=== PATIENT | male | born 1960 | race African-American/Black ===

== ENCOUNTER 2016-09-27 07:57 | Day surgery (SDC) | payer BC ==
[~2016-09-27 07:57] MED LIST: Buffered Lidocaine 0.9% SYRIN* 5 ML/SYR SYRINGE INTRADERM ONE; Ibuprofen TAB* 400 MG PO ONE; Sodium Citrate/Citric Acid* 15 ML UDC PO ONE
[2016-09-27] MEDS ORDERED: Sodium Citrate/Citric Acid* 15 ML UDC ONE (08:00)
[2016-09-27] MEDS ORDERED: Ibuprofen TAB* 400 MG ONE (08:00)
[2016-09-27] MEDS ORDERED: ceFAZolin 2 GM PREMIX(*) 2 GM/50 ML BAG IVPB ONE (08:08)
[2016-09-27] MEDS ORDERED: Bupivacaine 0.25% SDV* 30 ML ONE (09:31)
[2016-09-27] MEDS ORDERED: fentaNYL* 50 MCG/ML 2 ML VIAL (100 MCG VIAL) ONE (09:36)
[2016-09-27] MEDS ORDERED: Midazolam* 1 MG/ML 5 ML VIAL (5 MG) ONE (09:36)
[2016-09-27] MEDS ORDERED: Lidocaine 0.5%* 50 ML SDV ONE (09:48)
[2016-09-27] MEDS ORDERED: HYDROcodone/ACETAMIN 5-325 MG* 1 TAB PO PRN (10:02)
[2016-09-27] MEDS ORDERED: fentaNYL* 50 MCG/ML 2 ML VIAL (100 MCG VIAL) IV PRN (10:02)
[2016-09-27 11:16] VITALS: BP 129/84
--- NOTE | 2016-09-28 03:31 | OP ---
DATE OF OPERATION: 09/27/16 - [facility] DATE OF : 62 SURGEON: Ruiz Castellano MD SUCTION WORKER: LEAH Jasso ANESTHESIOLOGIST: Dr. Roy. ANESTHESIA: [place] block with MAC. PRE-OP DIAGNOSIS: Symptomatic and impinging hardware, right fifth metacarpal. POST-OP DIAGNOSIS: Symptomatic and impinging hardware, right fifth metacarpal. PROCEDURE PERFORMED: Removal of Synthes modular handset 2.4 mm plate and screws from right fifth metacarpal bone. INDICATIONS: Nikita had a fifth metacarpal fracture fixed with plate and screws in 2011. Plate was placed very distally, and was impinging dorsally when he would extend the MP joint. It was quite prominent and symptomatic. We had talked about risks and benefits including the risk of stiffness or tendon adhesions and other problems and he elected to proceed with surgery. ESTIMATED BLOOD LOSS: 2 mL. COMPLICATIONS: None. FINDINGS: There was significant bony overgrowth over about 75% of the plate. DESCRIPTION OF PROCEDURE: Nikita was seen in the preoperative holding area. The correct side, site, and procedure were identified. We came back to the operating room where the arm was prepped and draped in the usual fashion. A formal time-out was performed. The Sd block was performed. I began by going back through his old incision, which was on the dorsal ulnar aspect of the fifth metacarpal. Dissection was carried down through the bed of scar tissue and the extensor tendons were identified and full thickness flaps were raised right off of the extensor tendon paratenon. The extensor calderon was exposed distally. I then split the interval between the EDM and the EDC tendons. This was carried distally as a split through the extensor calderon and then the soft tissue layer overlying the plate was raised sharply, proximally off of the plate and bony overgrowth and then distally the capsule was incised longitudinally. The capsule of the metacarpophalangeal joint was incised longitudinally. At this point, I had to take an osteotome and spend a fair amount of time carefully excising all of the bony overgrowth. Additionally, there was quite a bit of bony ingrowth into the Yates head of the screw, which took quite sometime to excise all of that ingrowth so that I can get the screwdriver into the screw. Ultimately, I was able to get all the bony overgrowth excised. The 4 screws were removed uneventfully. I then had to spend a fair amount of time with the osteotome removing the bony overgrowth around the sides of the plate so that I could get the plate off the bone. The plate ultimately came off and was handed off as a specimen. I then took the rongeur and trimmed back all the bony sharp edges until a nice, smooth bony surface. The wound was copiously irrigated. The periosteal layer was closed over the bone with 4-0 Prolene suture with the knots buried. The capsule was closed distally with buried 4-0 Prolene [id number] stitches. The extensor calderon was closed with multiple [id number] 4-0 Prolene sutures again with the knots buried. Everything looked good at this point. So, I irrigated out the wound. The skin was closed with 4-0 nylon suture. The operative area was infiltrated with 0.25% plain Marcaine. The wound was dressed with Xeroform, 4x4s, sterile Webril and an Joni bandage. Tourniquet was deflated. The hand pinked up immediately. He was then taken to the recovery room in stable condition. [id number]/[facility] #: [id number] SRAVAN
== END 2016-09-27 11:21 | disposition home or self-care (01) ==
LOC: OREAST 07:57
PROVIDERS: ATTEND Orthopaedic Surgery Hand Surgery
DX: T84.84XA Pain due to internal orthopedic prosthetic devices, implants and grafts, initial encounter (principal); M77.11 Lateral epicondylitis, right elbow; M20.011 Mallet finger of right finger(s); F17.210 Nicotine dependence, cigarettes, uncomplicated; Y79.2 Prosthetic and other implants, materials and accessory orthopedic devices associated with adverse incidents; Z79.82 Long term (current) use of aspirin; Z88.8 Allergy status to other drugs, medicaments and biological substances; I10 Essential (primary) hypertension; K21.9 Gastro-esophageal reflux disease without esophagitis; M19.90 Unspecified osteoarthritis, unspecified site
CPT/HCPCS: 88300; A9270-GY; J0690; J2250; J3010

== ENCOUNTER 2023-08-26 12:36 | Observation (INO) ==
[2023-08-26 13:21] LABS: ABS Eosinophils 0.1 10^3/uL (0.0-0.5); ABS Lymphocytes 1.1 10^3/uL (1.0-4.8); ABS Monocytes 0.5 10^3/uL (0.0-1.1); ABS Neutrophils 2.8 10^3/uL (1.5-7.6); ABS Nucleated RBC 0.01 10^3/ul; Eosinophil % 1.3 %; Hematocrit 41.2 % (38-53); Hemoglobin 13.7 g/dL (13.2-16.3); Lymphocyte % 24.3 %; Mean Corpuscular Hemoglobin 30.4 pg (27-33); Mean Corpuscular Hgb Conc 33.3 g/dL (31-36); Mean Corpuscular Volume 91.3 fL (80-97); Mean Platelet Volume 9.4 fL (7.5-11.2); Nucleated Red Blood Cells % 0.1 %/100WBC (0.0-0.8); Platelet Count 154 10^3/uL (150-450); Red Blood Count 4.51 10^6/uL (4.06-5.63); Red Cell Distribution Width 14.1 % (12-17); White Blood Count 4.6 10^3/uL (3.6-10.2)
[2023-08-26] MEDS: Iodixanol (CONTRAST) 320 MG/ML 100 ML SDV IV ONE (13:23)
[2023-08-26 13:38] LABS: Activated Partial Thrombo Time 35.5 seconds (26.0-38.0); INR 0.89 (0.83-1.13)
[2023-08-26 13:57] LABS: Albumin 4.6 g/dL (3.2-5.2); Albumin/Globulin Ratio 1.8 (1-3); Calcium 9.1 mg/dL (8.6-10.3); Creatinine, Serum 0.83 mg/dL (0.67-1.17); Direct Bilirubin 0.1 mg/dL (0.03-0.18); Globulin 2.6 g/dL (2-4); HDL Cholesterol 80.2 mg/dL; Indirect Bilirubin 0.4 mg/dL (0.3-1.0); Potassium 4.1 mmol/L (3.5-5.0); Total Bilirubin 0.5 mg/dL (0.2-1.0); Total Protein 7.2 g/dL (6.4-8.9)
[2023-08-26 15:40] LABS: Urine Appearance Clear; Urine Bilirubin Negative (Negative); Urine Blood Negative (Negative); Urine Color Light-Yellow; Urine Glucose Negative (Negative); Urine Ketones Negative (Negative); Urine Nitrite Negative (Negative); Urine Protein Negative (Negative); Urine Specific Gravity 1.031 (1.002-1.030); Urine Urobilinogen Negative (Negative); Urine pH 6.5 (5.0-8.0)
[2023-08-26] MEDS: Enoxaparin 40 MG/0.4 ML SYR SUBCUT SCH (23:25)
[2023-08-26] MEDS: HYDROcodone/ACETAMIN 5/325 mg TAB PO PRN (23:39)
[2023-08-27] MEDS: CMCS: Brimonidine P 0.15%(NF) OPH SOL 5 ML BTL BOTH EYES SCH (00:02)
[2023-08-27] MEDS: NF: IPRATROPIUM BR (NF)0.03% NASAL 1 SPRAY BTL BOTH NARES SCH (00:04)
[2023-08-27] MEDS: Lidocaine PATCH 5% PATCH TRANSDERM SCH (00:59)
[2023-08-27] MEDS: Latanoprost 0.005% 2.5 ml BTL BOTH EYES SCH (01:03)
[2023-08-27] MEDS: Dorzolamide/Timolol OPTH (NF) 10 ML BOT BOTH EYES SCH (01:09)
[2023-08-27] MEDS: Sulfur Hexaflouride MICROSPHR 25 MG VIAL IV ONE ×2 (14:27)
[2023-08-27 14:30] VITALS: BP 149/94
== END 2023-08-27 17:00 | disposition home or self-care (01) ==
LOC: ED 12:36 → EDHOLD 12:36 → MEDTELE 17:07
PROVIDERS: ADMIT Student in an Organized Health Care Education/Training Program; ATTEND Student in an Organized Health Care Education/Training Program

== ENCOUNTER 2024-02-14 12:07 | Observation (INO) ==
[~2024-02-14 12:07] MED LIST changes: -Buffered Lidocaine 0.9% SYRIN* 5 ML/SYR SYRINGE INTRADERM ONE; -Ibuprofen TAB* 400 MG PO ONE; +Lidocaine 2% PF 5 ML VIAL ONE; +Metoclopramide 5 MG/ML VIAL (10 mg) IV PRN; +NS 0.45% 1000 ml BAG 1,000 ML IV SCH; +Naloxone 0.4 mg VIAL 0.4 mg/ml 1 ml VIAL IV PRN; +Ondansetron 4 mg VIAL 2 MG/ML 2 ml VIAL IV PRN; +Propofol 10 MG/ML 20 ML BTL ONE; -Sodium Citrate/Citric Acid* 15 ML UDC PO ONE; +fentaNYL 100 mcg/2 ml 50 MCG/ML VIAL ONE
[2024-02-14] MEDS ORDERED: ceFAZolin 2 GM PREMIX 2 GM/50 ML BAG ONE (12:42)
[2024-02-14] MEDS ORDERED: Tranexamic Acid 1 GM/100ML BAG 2,000 MG/200 ML BAG IV ONE (12:44)
[2024-02-14 13:07] LABS: Rapid COVID-19 Molecular Undetected (Undetected)
[2024-02-14] MEDS: Buffered Lidocaine 1% SYRIN 1 ml INTRADERM ONE (13:07)
[2024-02-14] MEDS: Scopolamine 1 mg/72hr PATCH TRANSDERM ONE (13:07)
[2024-02-14] MEDS ORDERED: Dexamethasone IV 4 MG/ML VIAL 1 ml VIAL ONE ×2 (13:12→16:49)
[2024-02-14] MEDS ORDERED: fentaNYL 100 mcg/2 ml 50 MCG/ML VIAL ONE ×3 (13:12→17:46)
[2024-02-14] MEDS ORDERED: Midazolam 2 mg/2 ml VIAL 1 mg/ml 2 ml VIAL (2 mg) ONE (13:12)
[2024-02-14] MEDS: Lactated Ringers 1000 ml BAG 1,000 ML IV SCH ×2 (13:22→19:10)
[2024-02-14] MEDS ORDERED: ROPIVACAINE 5 MG/ML 30 ML BTL (0.5%) ONE ×2 (13:38→15:02)
[2024-02-14] MEDS ORDERED: Glycopyrrolate IV 0.2 MG/ML 1 ML VIAL ONE (14:31)
[2024-02-14] MEDS ORDERED: HYDROmorphone 0.5 MG/0.5 ML SYRINGE ONE ×3 (15:22→15:51)
[2024-02-14] MEDS ORDERED: Lactulose 30 ml UDC PO PRN (16:04)
[2024-02-14] MEDS ORDERED: Magnesium Hydroxide LIQ 30 ML UDC PO PRN (16:04)
[2024-02-14] MEDS ORDERED: Ondansetron 4 mg VIAL 2 MG/ML 2 ml VIAL IV PRN (16:04)
[2024-02-14] MEDS ORDERED: Ondansetron ODT 4 mg TAB 4 MG TAB PO PRN (16:04)
[2024-02-14] MEDS ORDERED: Morphine 2 MG/ML SYRINGE IV PRN (16:04)
[2024-02-14] MEDS ORDERED: Calcium Carb (TUMS) 500 mg CHEW TAB PO PRN (16:04)
[2024-02-14] MEDS ORDERED: Ondansetron 4 mg VIAL 2 MG/ML 2 ml VIAL ONE (16:49)
[2024-02-14] MEDS ORDERED: ceFAZolin 2 GM PREMIX 2 GM/50 ML BAG IV SCH (17:00)
[2024-02-14] MEDS: fentaNYL 100 mcg/2 ml 50 MCG/ML VIAL IV PRN (17:49)
[2024-02-14] MEDS: Magnesium Hydroxide LIQ 30 ML UDC PO SCH (20:32)
[2024-02-14] MEDS: Brimonidine P 0.15%(NF) OPH SOL 5 ML BTL BOTH EYES SCH (22:07)
[2024-02-14] MEDS: Latanoprost 0.005% 2.5 ml BTL BOTH EYES SCH (22:07)
[2024-02-14] MEDS: ceFAZolin 2 GM in NS 100 MLS Q8H (Pharmacy Admix) IVPB SCH (22:09)
[2024-02-14] MEDS: Dorzolamide/Timolol OPTH (NF) 10 ML BOT BOTH EYES SCH (22:36)
[2024-02-15 06:19] LABS: Hemoglobin 11.5 g/dL (13.2-16.3); Mean Platelet Volume 9.3 fL (7.5-11.2); Platelet Count 171 10^3/uL (150-450)
[2024-02-15 06:21] VITALS: BP 138/90
[2024-02-15 06:37] LABS: Calcium 8.7 mg/dL (8.6-10.3); Creatinine, Serum 0.73 mg/dL (0.67-1.17); Potassium 4.4 mmol/L (3.5-5.0); eGFR CKD-EPI 102.2 (>60)
[2024-02-15] MEDS: Acetaminophen IV 1 GM/100ML 1,000 MG/100 ML BAG IV ONE (07:08)
[2024-02-15] MEDS: Cholecalciferol (VIT D3) 1,000 unit TAB PO SCH (07:52)
[2024-02-15] MEDS: Vitamin THERAPEUTIC TAB PO SCH (07:52)
[2024-02-15] MEDS: Calcium Citrate 200 mg TAB PO SCH (07:52)
[2024-02-15] MEDS: NF: Azelastine 0.15% NASAL(NF) 30 ML BTL BOTH NARES SCH (07:53)
[2024-02-15] MEDS: Coenzyme Q10 CAP (NF) ** ENTER STREGNTH IN LABEL DIRECTIONS PO SCH (07:53)
== END 2024-02-15 11:05 | disposition home or self-care (01) ==
LOC: SSU 12:07 → OR 12:07
PROVIDERS: ADMIT Orthopaedic Surgery Adult Reconstructive Orthopaedic Surgery; ATTEND Orthopaedic Surgery Adult Reconstructive Orthopaedic Surgery